=== PATIENT | female | born 2000 | race Caucasian/White ===

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

== ENCOUNTER 2019-04-05 12:47 | Emergency (ER) | payer BC ==
--- OUTSIDE RECORDS SUMMARY | 2019-04-05 13:25 | XMS REPORT | Continuity of Care Document ---
:1999 External Reference #:[id number] Author Name Leah Navarro Address [address] [place] [address] Care Team Providers Name Role Phone Henrietta Rose DO Primary Care Physician Unavailable Payers Date Identification Numbers Payment Provider Subscriber Effective: 2010 Policy Number: [id number] BC/BS Ppo/Epo greg dixon Group Name: [employer] [address] [address] PayID: [id number] [place] [address] Problems Active Problems Provider Date Kidney stone Henrietta Rose D.O. 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 Onset: 2010 Inactive: 10/16/2018 Generalized anxiety disorder Henrietta Rose D.O. Onset: 10/08/2015 Inactive: 10/16/2018 Moderate recurrent major depression Henrietta Rose D.O. Onset: 10/08/2015 Inactive: 10/16/2018 Resolved Problems Eating disorder Henrietta Rose D.O. Onset: 10/08/2015 Resolved: 06/05/2018 Family History Date Family Member(s) Observation Comments General Cousin with ADHD Father Unknown Mother Seasonal Allergies Mother Celiac Disease Mother Scleroderma First Sister No Current Problems First Sister Rochelle Maternal Grandfather Hypertension Maternal Grandmother Depression Social History Type Date Description Comments Sex Unknown Lives With Mother Lives With Stepfather Lives With Younger Sister Rochelle Tobacco Use Start: Unknown Patient has never smoked Smoking Status Reviewed: 04/03/19 Patient has never smoked Allergies, Adverse Reactions, Alerts Description No Known Drug Allergies Medications Active Medications SIG Qnty Indications Ordering Date Provider Ketoconazole apply to affected 60gm B35.4 [facility] 01/28/2019 2% Cream area twice daily Sharkness, C.P.N.P Hydrocortisone Valerate apply to affected 45gm B35.4 [facility] 01/28/2019 area twice daily Sharkness, 0.2% Cream for 5 - 7 days C.P.N.P Culturelle Digestive Use as directed Unknown Health Probiotic Capsules Tretinoin Microsphere apply to face at Unknown 0.04% bedtime Gel Sulfacleanse 06/29 Use as directed 473ml Henrietta Rose, 8-4% D.O. Suspension History Medications Tamsulosin HCL 1 tablet daily 21caps N20.2 Henrietta Rose, 07/01/2018 - 0.4mg D.O. 07/28/2018 Capsules Imiquimod apply at bedtime 24units B07.9 Henrietta Rose, 06/21/2017 - 5% Cream three times a D.O. 08/16/2017 week x 4-8 weeks Azithromycin 2 tablets by 6tabs J01.00 [facility] 02/12/2017 - 250mg mouth today Sharkness, 02/17/2017 Tablets followed by 1 C.P.N.P tablet by mouth daily for 4 days Cefdinir 2 by mouth once 20caps J01.00 Henrietta Rose, 02/28/2016 - 300mg Capsules daily x 10d D.O. 03/09/2016 Imiquimod apply at bedtime 24units B07.9 Henrietta Rose, 02/28/2016 - 5% Cream three times a D.O. 04/24/2016 week x 4-8 weeks Claritin-D 12 Hour 1 tab po twice 20tabs J01.20 [facility] 01/10/2016 - daily Donny, 01/20/2016 5-120mg Tablets ER M.D. 12HR Zithromax z raya 6tabs J01.20 [facility] 01/10/2016 - 250mg Tablets Donny, 01/15/2016 M.DTina Amoxicillin 1 tablet twice 28tabs J01.00 Henrietta Rose, 12/22/2015 - 875mg daily for 14 D.O. 01/05/2016 Tablets days Sertraline HCL 1 1/2 by mouth 45tabs F41.1 Henrietta Rose, 10/08/2015 - 50mg every day D.O. 08/04/2017 Tablets F33.1 Sertraline HCL 1 1/2 tablets 45tabs F41.1 Henrietta Rose, 04/08/2015 - 25mg daily D.O. 10/08/2015 Tablets F33.1 Citalopram 1 tablet daily 30tabs 296.32 Henrietta oRse, 02/25/2015 - Hydrobromide D.O. 04/06/2015 10mg Tablets Imiquimod apply at bedtime 24units 078.10 Henrietta Rose, 02/25/2015 - 5% Cream three times a D.O. 06/01/2015 week x 4-8 weeks No Active Medications Unknown 05/16/2014 - 02/25/2015 Amoxicillin/Clavulana 1 tablet by 20tabs 682.9 [facility] 05/06/2014 - te Potassium mouth twice [facility], 05/16/2014 875-125mg daily for 10 C.P.N.P Tablets days No Active Medications Unknown 01/06/2014 - 05/06/2014 Ketoconazole apply to 30gm 110.5 [facility] 11/24/2013 - 2% Cream affected area [facility], 12/08/2013 twice daily C.P.N.P Amoxicillin 1 tablet twice 20tabs 382.9 [facility] 11/24/2013 - 875mg daily for 10 [facility], 12/04/2013 Tablets days C.P.N.P Focalin XR 1 by mouth each 30caps 314.01 Henrietta Rose, 07/01/2013 - 10mg Caps ER morning D.O. 01/06/2014 24HR Focalin XR 1 by mouth daily 30caps 314.01 Henrietta Rose, 07/15/2012 - 15mg Caps ER D.O. 07/01/2013 24HR Melatonin 1 po qhs 30caps Henrietta Rose, 05/14/2012 - 3mg Capsules D.O. 04/08/2013 Focalin XR 1 po qam 30caps 314.01 Henrietta Rose, 05/14/2012 - 25mg Caps ER D.O. 07/15/2012 24HR Ciprodex 4 drops each ear 7.500ml 380.22 Ramón 05/30/2011 - 0.3-0.1% twice daily for Sharkness, 06/04/2011 Suspension 7 days C.P.N.P Focalin XR 1 po qd 30caps 314.01 Henrietta Rose, 04/04/2011 - 20mg Caps ER D.O. 05/14/2012 24HR Polytrim 1 gtt to both 1bottle Vilma Burtshaylee, 03/24/2010 - eyes qid for 5-7 PNP-BC 03/31/2010 32520-5.1Unit/ML-% days Solution Cefdinir 1 1/2 tsp po qd 100ml 461.9 Henrietta Rose, 03/02/2010 - 250mg/5ML x 10d D.O. 03/12/2010 Suspension Rec Fluoxetine HCL 1 tab daily 30tabs 300.00 Henrietta Rose, 01/14/2010 - 10mg D.O. 05/09/2010 Tablets Focalin XR 1 po qam 30caps 314.01 Randy Mello, 10/20/2009 - 15mg Caps ER M.D. 04/04/2011 24HR Focalin XR 1 po qam 25caps Henrietta Rose, 09/22/2009 - 5mg Caps ER D.O. 10/20/2009 24HR Focalin XR 1 po qd 30caps 314.01 Molly Stephen, 05/20/2008 - 10mg Caps ER C.P.N.P. 10/20/2009 24HR Focalin XR 1 po qam 30caps 314.01 Henrietta Rose, 04/29/2008 - 5mg Caps ER D.O. 05/20/2008 24HR Ceftin 1 Tab PO bid For QS 382.00 [facility] 04/13/2008 - 250mg Tablets 10 Days pc Donny, 04/23/2008 M.D. Adderall XR 1 po qd 30caps 314.01 [facility] 01/15/2008 - 10mg Donny, 04/29/2008 Capsules M.D. Amoxil 2 PO bid X 10D 40units 034.0 Henrietta Rose, 01/15/2008 - 400mg Chewtabs D.O. 01/25/2008 Adderall 314.01 Unknown - 7.5mg Tablets 01/15/2008 Trazodone HCL Take One Tablet 30tabs F41.1 Henrietta Rose, - 50mg By Mouth AT D.O. 08/20/2017 Tablets Bedtime F33.1 Immunizations CPT Code Status Date Vaccine Lot # [id number] Given 05/01/2018 Hepatitis A Vaccine Pediatric/Adolescent 2 Dose [id number] Schedule 81458 Given 06/21/2016 Meningococcal A,C,Y,W135 (Menactra) Preservative [id number] Free 23084 Given 07/16/2013 Flu Mist Quadrivalent [id number] 05169 Given 09/09/2012 Meningococcal A,C,Y,W135 (Menactra) Preservative [id number] Free 46324 Given 09/09/2012 Flu Vacc Nasal Mist Trivalent (FluMist) [id number] 48833 Given 10/11/2011 Flu Vacc Nasal Mist Trivalent (FluMist) [id number] 09912 Given 10/06/2010 TdaP Immunization Age 7+ [id number] 19658 Given 10/06/2010 Flu Vacc Nasal Mist Trivalent (FluMist) [id number] 72410 Given 09/22/2009 Varicella (Chicken Pox) Immunization [id number] 20800 Given 09/22/2009 Flu H1N1/Pandemic Nasal Mist [id number] 17854 Given 09/22/2009 Vaccine Admin H1N1 Only Im or Nasal 02921 Given 07/28/2009 Flu Vacc Nasal Mist Trivalent (FluMist) [id number] 15176 Given 12/06/2008 Hib Vaccine 17588 Given 09/22/2008 Flu Vacc Nasal Mist Trivalent (FluMist) [id number] 34336 Given 05/10/2004 DTaP Immunization under age 7 05627 Given 05/09/2004 Poliomyelitis Immunization 65243 Given 05/09/2004 MMR Virus Immunization 40731 Given 10/16/2002 Hib Vaccine 88852 Given 12/06/2000 DTaP Immunization under age 7 28775 Given 11/26/2000 Hepatitis B Imm Age 0 to 19yr 35301 Given 09/06/2000 Varicella (Chicken Pox) Immunization 73113 Given 09/06/2000 Poliomyelitis Immunization 55275 Given 09/06/2000 MMR Virus Immunization 02694 Given 02/15/2000 DTaP Immunization under age 7 32566 Given 1999 Hepatitis B Imm Age 0 to 19yr 45758 Given 1999 Poliomyelitis Immunization 83265 Given 1999 DTaP Immunization under age 7 18665 Given 1999 Hib Vaccine 48919 Given 1999 Hepatitis B Imm Age 0 to 19yr 45917 Given 1999 Poliomyelitis Immunization 15628 Given 1999 DTaP Immunization under age 7 19061 Given 1999 Hib Vaccine 51701 Refused 06/21/2016 Hepatitis A Vaccine Pediatric/Adolescent 2 Dose Schedule 41707 Refused 06/21/2016 HPV 9 Gardasil 9 Vital Signs Date Vital Result Comment 04/03/2019 2:07pm Weight 135.00 lb Weight 61.236 kg Weight Percentile 62nd Body Temperature 98.1 F 01/28/2019 8:56am Height 62.75 inches 5'2.75" Height Percentile 27 % Weight 134.00 lb Weight 60.782 kg Weight Percentile 61st Body Temperature 97.4 F BMI (Body Mass Index) 23.9 kg/m2 Body Mass Index Percentile 72 % 10/16/2018 10:58am Height 62.75 inches 5'2.75" Height Percentile 27 % Weight 127.25 lb Weight 57.721 kg Weight Percentile 51st Heart Rate 53 /min BP Systolic 110 mmHg BP Diastolic 70 mmHg BMI (Body Mass Index) 22.7 kg/m2 Body Mass Index Percentile 63 % 07/01/2018 3:58pm Height 63 inches 5'3" Height Percentile 31 % Weight 119.12 lb Weight 54.035 kg Weight Percentile 36th Heart Rate 71 /min BP Systolic 107 mmHg BP Diastolic 62 mmHg Blood Pressure Percentile 41 % BMI (Body Mass Index) 21.1 kg/m2 Body Mass Index Percentile 45 % 06/28/2018 3:56pm Weight 117.00 lb Weight 53.071 kg Weight Percentile 31st Body Temperature 98.0 F 06/18/2018 8:41am Weight 117.38 lb Weight 53.241 kg Weight Percentile 32nd Body Temperature 98.3 F 06/05/2018 11:00am Weight 118.50 lb Weight 53.752 kg Weight Percentile 35th Body Temperature 98.3 F 05/01/2018 2:38pm Height 63.5 inches 5'3.50" Height Percentile 38 % Weight 122.00 lb Weight 55.339 kg Weight Percentile 42nd Heart Rate 56 /min BP Systolic 99 mmHg BP Diastolic 61 mmHg Blood Pressure Percentile 14 % BMI (Body Mass Index) 21.3 kg/m2 Body Mass Index Percentile 47 % Right ear audiology results 20 db Left ear audiology results 20 db Left Visual Acuity Distance 20/20 Right Visual Acuity Distance 20/20 03/20/2018 9:40am Height 63 inches 5'3" Height Percentile 31 % Weight 122.00 lb Weight 55.339 kg Weight Percentile 43rd Heart Rate 79 /min BP Systolic 124 mmHg BP Diastolic 64 mmHg Blood Pressure Percentile 91 % BMI (Body Mass Index) 21.6 kg/m2 Body Mass Index Percentile 52 % 06/21/2017 10:26am Height 63 inches 5'3" Height Percentile 32 % Weight 118.50 lb Weight 53.752 kg Weight Percentile 39th Heart Rate 65 /min BP Systolic 106 mmHg BP Diastolic 54 mmHg Blood Pressure Percentile 33 % BMI (Body Mass Index) 21.0 kg/m2 Body Mass Index Percentile 47 % Right ear audiology results 20 db Left ear audiology results 20 db Left Visual Acuity Distance 20/20 Right Visual Acuity Distance 20/20 02/12/2017 10:01am Weight 124.31 lb Weight 56.388 kg Weight Percentile 53rd Body Temperature 98.4 F 06/21/2016 1:58pm Height 63.25 inches 5'3.25" Height Percentile 37 % Weight 116.00 lb Weight 52.618 kg Weight Percentile 39th Heart Rate 94 /min BP Systolic 105 mmHg BP Diastolic 63 mmHg Blood Pressure Percentile 28 % BMI (Body Mass Index) 20.4 kg/m2 Body Mass Index Percentile 44 % Right ear audiology results 20 db Left ear audiology results 20 db Left Visual Acuity Distance 20/20 Right Visual Acuity Distance 20/20 03/29/2016 8:51am Height 63 inches 5'3" Height Percentile 33 % Weight 120.00 lb Weight 54.432 kg Weight Percentile 48th Heart Rate 67 /min BP Systolic 118 mmHg BP Diastolic 63 mmHg Blood Pressure Percentile 75 % BMI (Body Mass Index) 21.3 kg/m2 Body Mass Index Percentile 56 % 02/28/2016 10:18am Weight 122.00 lb Weight 55.339 kg Weight Percentile 53rd Body Temperature 97.7 F Heart Rate 97 /min BP Systolic 116 mmHg BP Diastolic 71 mmHg Blood Pressure Percentile 0 % O2 % BldC Oximetry 98 % 01/10/2016 5:13pm Weight 124.00 lb Weight 56.246 kg Weight Percentile 57th Body Temperature 98.0 F Heart Rate 73 /min O2 % BldC Oximetry 100 % 12/22/2015 11:48am Weight 120.00 lb Weight 54.432 kg Weight Percentile 50th Body Temperature 98.2 F 10/08/2015 3:52pm Height 62.75 inches 5'2.75" Height Percentile 31 % Weight 125.00 lb Weight 56.700 kg Weight Percentile 60th Heart Rate 51 /min BP Systolic 108 mmHg BP Diastolic 67 mmHg Blood Pressure Percentile 40 % BMI (Body Mass Index) 22.3 kg/m2 Body Mass Index Percentile 70 % 06/25/2015 3:25pm Height 62.75 inches 5'2.75" Height Percentile 31 % Weight 119.00 lb Weight 53.978 kg Weight Percentile 51st Heart Rate 69 /min BP Systolic 112 mmHg BP Diastolic 66 mmHg Blood Pressure Percentile 56 % BMI (Body Mass Index) 21.2 kg/m2 Body Mass Index Percentile 60 % 05/20/2015 9:10am Height 63.25 inches 5'3.25" Height Percentile 39 % Weight 118.12 lb Weight 53.581 kg Weight Percentile 50th Heart Rate 79 /min BP Systolic 124 mmHg BP Diastolic 67 mmHg Blood Pressure Percentile 89 % BMI (Body Mass Index) 20.8 kg/m2 Body Mass Index Percentile 55 % 04/06/2015 8:44am Height 62.5 inches 5'2.50" Height Percentile 29 % Weight 122.38 lb Weight 55.509 kg Weight Percentile 59th Heart Rate 76 /min BP Systolic 106 mmHg BP Diastolic 59 mmHg Blood Pressure Percentile 34 % BMI (Body Mass Index) 22.0 kg/m2 Body Mass Index Percentile 69 % 02/25/2015 8:52am Height 63 inches 5'3" Height Percentile 36 % Weight 122.00 lb Weight 55.339 kg Weight Percentile 59th Heart Rate 66 /min BP Systolic 120 mmHg BP Diastolic 59 mmHg Blood Pressure Percentile 81 % BMI (Body Mass Index) 21.6 kg/m2 Body Mass Index Percentile 66 % 12/23/2014 1:28pm Weight 118.00 lb Weight 53.525 kg Weight Percentile 53rd Body Temperature 98.3 F 10/19/2014 4:22pm Weight 119.00 lb Weight 53.978 kg Weight Percentile 56th Body Temperature 98.0 F Heart Rate 94 /min O2 % BldC Oximetry 100 % 05/21/2014 9:12am Weight 119.00 lb Weight 53.978 kg Weight Percentile 59th Body Temperature 98.3 F 05/06/2014 4:05pm Weight 122.50 lb Weight 55.566 kg Weight Percentile 65th Body Temperature 98.9 F 01/06/2014 8:40am Height 63 inches 5'3" Height Percentile 42 % Weight 120.00 lb Weight 54.432 kg Weight Percentile 64th Heart Rate 67 /min BP Systolic 113 mmHg BP Diastolic 60 mmHg Blood Pressure Percentile 62 % BMI (Body Mass Index) 21.3 kg/m2 Body Mass Index Percentile 69 % 11/24/2013 4:09pm Weight 122.00 lb Weight 55.339 kg Weight Percentile 68th Body Temperature 97.6 F Heart Rate 78 /min BP Systolic 112 mmHg BP Diastolic 65 mmHg Blood Pressure Percentile 0 % O2 % BldC Oximetry 100 % 11/07/2013 8:25am Weight 123.00 lb Weight 55.793 kg Weight Percentile 70th Body Temperature 97.6 F 08/06/2013 11:30am Weight 115.00 lb Weight 52.164 kg Weight Percentile 60th Body Temperature 97.9 F Heart Rate 72 /min 07/16/2013 11:42am Weight 117.00 lb Weight 53.071 kg Weight Percentile 64th Body Temperature 97.8 F 07/01/2013 10:27am Height 62.75 inches 5'2.75" Height Percentile 44 % Weight 117.00 lb Weight 53.071 kg Weight Percentile 65th Heart Rate 76 /min BP Systolic 102 mmHg BP Diastolic 64 mmHg Blood Pressure Percentile 25 % BMI (Body Mass Index) 20.9 kg/m2 Body Mass Index Percentile 68 % 04/08/2013 8:35am Height 62.75 inches 5'2.75" Height Percentile 48 % Weight 113.00 lb Weight 51.257 kg Weight Percentile 61st Heart Rate 88 /min BP Systolic 123 mmHg BP Diastolic 65 mmHg Blood Pressure Percentile 0 % BMI (Body Mass Index) 20.2 kg/m2 Body Mass Index Percentile 62 % 09/09/2012 9:43am Height 62 inches 5'2" Height Percentile 49 % Weight 103.00 lb Weight 46.721 kg Weight Percentile 51st Heart Rate 68 /min BP Systolic 110 mmHg BP Diastolic 64 mmHg Blood Pressure Percentile 58 % BMI (Body Mass Index) 18.8 kg/m2 Body Mass Index Percentile 50 % 05/14/2012 7:58am Height 62.25 inches 5'2.25" Height Percentile 60 % Weight 101.00 lb Weight 45.814 kg Weight Percentile 53rd Heart Rate 60 /min BP Systolic 106 mmHg BP Diastolic 64 mmHg Blood Pressure Percentile 42 % BMI (Body Mass Index) 18.3 kg/m2 Body Mass Index Percentile 46 % 10/30/2011 10:02am Height 60.75 inches 5'0.75" Height Percentile 57 % Weight 91.00 lb Weight 41.278 kg Weight Percentile 42nd Heart Rate 88 /min BP Systolic 112 mmHg BP Diastolic 52 mmHg Blood Pressure Percentile 69 % BMI (Body Mass Index) 17.3 kg/m2 Body Mass Index Percentile 35 % 10/11/2011 8:16am Height 60.5 inches 5'0.50" Height Percentile 55 % Weight 90.00 lb Weight 40.824 kg Weight Percentile 41st BP Systolic 110 mmHg BP Diastolic 58 mmHg Blood Pressure Percentile 62 % BMI (Body Mass Index) 17.3 kg/m2 Body Mass Index Percentile 35 % 05/30/2011 11:34am Weight 83.00 lb Weight 37.649 kg Weight Percentile 33rd Body Temperature 98.2 F Blood Pressure Percentile 0 % 04/04/2011 8:50am Height 59.5 inches 4'11.50" Height Percentile 61 % Weight 84.00 lb Weight 38.102 kg Weight Percentile 39th BP Systolic 110 mmHg BP Diastolic 60 mmHg Blood Pressure Percentile 65 % BMI (Body Mass Index) 16.7 kg/m2 Body Mass Index Percentile 30 % 12/26/2010 9:47am Weight 75.00 lb Weight 34.020 kg Weight Percentile 23rd Body Temperature 98.6 F Blood Pressure Percentile 0 % 10/06/2010 2:10pm Weight 75.00 lb Weight 34.020 kg Weight Percentile 28th Body Temperature 98.8 F Blood Pressure Percentile 0 % 08/26/2010 2:54pm Height 57.25 inches 4'9.25" Height Percentile 54 % Weight 72.00 lb Weight 32.659 kg Weight Percentile 23rd Heart Rate 68 /min BP Systolic 110 mmHg BP Diastolic 66 mmHg Blood Pressure Percentile 70 % BMI (Body Mass Index) 15.4 kg/m2 Body Mass Index Percentile 16 % 03/17/2010 4:24pm Height Percentile 97 % Weight 64.50 lb Weight 29.257 kg Weight Percentile 14th Body Temperature 98.6 F Blood Pressure Percentile 0 % 03/02/2010 8:07am Height 56 inches 4'8" Height Percentile 54 % Weight 65.00 lb Weight 29.484 kg Weight Percentile 16th Heart Rate 70 /min BP Systolic 90 mmHg BP Diastolic 59 mmHg Blood Pressure Percentile 9 % BMI (Body Mass Index) 14.6 kg/m2 Body Mass Index Percentile 8 % 01/13/2010 11:42am Height 55.75 inches 4'7.75" Height Percentile 55 % Weight 62.00 lb Weight 28.123 kg Weight Percentile 11th Body Temperature 97.9 F Blood Pressure Percentile 0 % BMI (Body Mass Index) 14.0 kg/m2 Body Mass Index Percentile 3 % 09/22/2009 3:04pm Height 54.5 inches 4'6.50" Height Percentile 47 % Weight 66.00 lb Weight 29.938 kg Weight Percentile 28th Heart Rate 75 /min BP Systolic 94 mmHg BP Diastolic 63 mmHg Blood Pressure Percentile 21 % BMI (Body Mass Index) 15.6 kg/m2 Body Mass Index Percentile 27 % 12/25/2008 8:09am Weight 58.00 lb Weight 26.309 kg Weight Percentile 21st 09/22/2008 3:05pm Height 52 inches 4'4" Height Percentile 39 % Weight 57.00 lb Weight 25.855 kg Weight Percentile 23rd Heart Rate 80 /min BP Systolic 100 mmHg BP Diastolic 56 mmHg BMI (Body Mass Index) 14.8 kg/m2 Body Mass Index Percentile 22 % 04/29/2008 8:12am Weight 52.00 lb Weight 23.587 kg Weight Percentile 16th BP Systolic 122 mmHg BP Diastolic 60 mmHg 04/13/2008 11:59am Weight 55.00 lb Weight 24.948 kg Weight Percentile 26th Body Temperature 98.1 F 04/13/2008 11:59am Weight 55.00 lb Weight 24.948 kg Weight Percentile 26th 02/14/2008 8:00am Weight 61.00 lb Weight 27.670 kg Weight Percentile 52nd BP Systolic 92 mmHg BP Diastolic 50 mmHg 01/15/2008 8:26am Weight 53.00 lb Weight 24.041 kg Weight Percentile 24th BP Systolic 98 mmHg BP Diastolic 64 mmHg Results Test Date Facility Test Result H/L Range Note Laboratory test 04/03/2019 In House Lab .Strep A, Neg finding (195)- - Rapid CBC Auto Diff 10/16/2018 [facility] White Blood 5.6 10^3/uL N 3.5-10.8 [address] [place] [address] [phone] Red Blood Count 4.34 10^6/uL N 4.00-5.40 Hemoglobin 13.3 g/dL N 12.0-16.0 Hematocrit 39 % N 35-47 Mean Corpuscular Volume 90 fL N 80-97 Mean Corpuscular Hemoglobin 31 pg N 27-31 Mean Corpuscular HGB Conc 34 g/dL N 31-36 Red Cell Distribution Width 14 % N 10.5-15 Platelet Count 257 10^3/uL N 150-450 Mean Platelet Volume 8.7 fL N 7.4-10.4 Abs Neutrophils 3.2 10^3/uL N 1.5-7.7 Abs Lymphocytes 1.9 10^3/uL N 1.0-4.8 Abs Monocytes 0.4 10^3/uL N 0-0.8 Abs Eosinophils 0.1 10^3/uL N 0-0.6 Abs Basophils 0 10^3/uL N 0-0.2 Abs Nucleated RBC 0 10^3/uL Granulocyte % 58.4 % N 38-83 Lymphocyte % 33.3 % N 25-47 Monocyte % 7.0 % N 0-7 Eosinophil % 0.9 % N 0-6 Basophil % 0.4 % N 0-2 Nucleated Red Blood Cells % 0.1 Comp Metabolic Panel 10/16/2018 [facility] Sodium 138 mmol/L N 135-145 [address] [place] [address] [phone] Potassium 4.2 mmol/L N 3.5-5.0 Chloride 103 mmol/L N 101-111 Co2 Carbon Dioxide 28 mmol/L N 22-32 Anion Gap 7 mmol/L N 2-11 Glucose 73 mg/dL N 70-100 Blood Urea Nitrogen 13 mg/dL N 6-24 Creatinine 0.71 mg/dL N 0.51-0.95 BUN/Creatinine Ratio 18.3 N 8-20 Calcium 10.1 mg/dL N 8.6-10.3 Total Protein 6.9 g/dL N 6.4-8.9 Albumin 4.8 g/dL N 3.2-5.2 Globulin 2.1 g/dL N 2-4 Albumin/Globulin Ratio 2.3 N 1-3 Total Bilirubin 0.60 mg/dL N 0.2-1.0 Alkaline Phosphatase 82 U/L N 34-104 Alt 17 U/L N 7-52 Ast 22 U/L N 13-39 Egfr Non- 106.0 >60 Egfr 128.3 >60 1 Pthi 10/16/2018 [facility] Calcium (PTH Intact) 10.1 mg/dL N 8.6-10.3 10 [place] [address] [phone] PTH Intact 2.4 pmol/L N 1.3-9.3 Laboratory test 10/16/2018 [facility] Phosphorus 3.5 mg/dL N 2.5-5.0 finding 10 [place] [address] [phone] Food Allergy 10/16/2018 [facility] Egg White <0.35 kU/L 2 Panel 10 [facility] [place] [address] [phone] [place] Allergen IgE <0.35 kU/L 3 Egg Yolk Allergen IgE <0.35 kU/L 4 Cow's Milk Allergen IgE <0.35 kU/L 5 Peanut Allergen IgE <0.10 kU/L 6 Soybean Allergen IgE <0.35 kU/L 7 Wheat Allergen IgE <0.35 kU/L 8 Laboratory test 10/16/2018 [facility] Black/White Pepper < 0.35 kU/L 9 finding 10 [facility] [place] [address] [phone] Rast Cat Epithelium Ige <0.35 kU/L 10 Rast Chicken Feathers <0.35 kU/L 11 Duck Feathers, IgE <0.35 kU/L 12 Rast Chicken Meat <0.35 kU/L 13 Rast Medina <0.35 kU/L 14 Rast Rice <0.35 kU/L 15 Rast Tomatoe <0.35 kU/L 16 Rast Yeast ([place]) <0.35 kU/L 17 Goose Feathers Allergen IgE Ab <0.35 kU/L 18 [place] Feathers, IgE <0.35 kU/L 19 Rast Chocolate <0.35 kU/L 20 [place] [facility] 10/16/2018 [facility] Bermuda Grass <0.35 kU/L 21 Allergy Panel 10 [employer] Allergen IgE [place], [place] [id number] [phone] Silver Birch IgE <0.35 kU/L 22 [place] Maple IgE <0.35 kU/L 23 [place] Allergen IgE <0.35 kU/L 24 Cocklebur Allergen IgE <0.35 kU/L 25 [place] Allergen IgE <0.35 kU/L 26 Dandelion Allergen IgE <0.35 kU/L 27 [place]m Tree Allergen IgE <0.35 kU/L 28 Yoruba Plantain Allergen IgE <0.35 kU/L 29 [place] Allergen IgE <0.35 kU/L 30 [place] Tree Allerg IgE <0.35 kU/L 31 [place] Blue (April) Grass IgE <0.35 kU/L 32 [place] Quarter Allergen IgE <0.35 kU/L 33 [place] Tree Allergen IgE <0.35 kU/L 34 [place] Allergen IgE <0.35 kU/L 35 Rough Pigweed Allergen IgE <0.35 kU/L 36 [place] Tree Allergen IgE <0.35 kU/L 37 Common Ragweed (Short) Allerge <0.35 kU/L 38 Giant Ragweed Allergen IgE <0.35 kU/L 39 [place] Tree Allergen IgE <0.35 kU/L [address] [address] Grass Allergen IgE <0.35 kU/L 41 Sheep Blanding Allergen IgE <0.35 kU/L 42 [place] Grass Allergen IgE <0.35 kU/L 43 White Adriano Allergen IgE <0.35 kU/L 44 [place] Tree Allergen IgE <0.35 kU/L 45 Laboratory test 10/16/2018 [facility] Rast Coconut <0.35 kU/L 46 finding [address] [place] [address] [phone] Cockroach Allergen IgE <0.35 kU/L 47 Rast Cow Dander Ige <0.35 kU/L 48 Rast Dog Dander Ige <0.35 kU/L 49 Rast Garlic <0.35 kU/L 50 Rast Guinea Pig <0.35 kU/L 51 Horse Dander Allergen IgE <0.35 kU/L 52 Malt Allergen IgE Antibody <0.35 kU/L 53 Rast Onion <0.35 kU/L 54 [place] [facility] 10/16/2018 [facility] Alternaria tenuis <0.35 kU/L 55 Allergy Panel 10 [facility] [employer] [place] [address] [phone] A pullulans IgE Allergen <0.35 kU/L 56 Aspergillus Fumigatus IgE <0.35 kU/L 57 Botrytis Allergen IgE <0.35 kU/L 58 Kacie albicans Allergen IgE <0.35 kU/L 59 Cladosporium herbarum IgE <0.35 kU/L 60 Dermatophagoides farinae IgE <0.35 kU/L 61 Dermatophagoides pteronyssinus <0.35 kU/L 62 Epicoccum Allergen IgE <0.35 kU/L 63 Fusarium moniliforme Allergen <0.35 kU/L 64 Helminthosporium halodes IgE <0.35 kU/L 65 House Dust/Nuñez Allergen IgE <0.35 kU/L 66 House Dust/[place] Varina Narcisa IgE <0.35 kU/L 67 Mucor racemosus Allergen IgE <0.35 kU/L 68 Penicillium notatum Allerg IgE <0.35 kU/L 69 Rhizopus nigricans Allerg IgE <0.35 kU/L 70 Stemphyllium IgE Allergen <0.35 kU/L 71 Trichophyton rubrum Allergen <0.35 kU/L 72 Ustilago nuda IgE Allergen <0.35 kU/L 73 Laboratory test 06/28/2018 In House Lab .Urine Culture In <100k neg finding (607)- - House Laboratory test 06/21/2017 In House Lab .Hemoglobin in 13.4 finding (607)- - house Laboratory test 06/21/2016 In House Lab .Hemoglobin in 12.7 finding (607)- - house Laboratory test 02/25/2015 [facility] Magnesium 1.9 mg/dL N 1.9-2.[address] [place] [address] [phone] Zinc Level 0.68 g/mL N 0.66-1.10 74 Free T4 0.99 ng/mL N 0.61-1.12 Total T3 1.03 ng/mL N 0.87-1.78 Vitamin D, 25 02/25/2015 [facility] 25-Hydroxy Vitamin <4.0 ng/ mL N Hydroxy [address] [place] [address] [phone] 25-Hydroxy Vitamin D3 33 ng/mL N 25-Hydroxy Vitamin D Total 33 ng/mL N 75 Laboratory test 02/25/2015 [facility] TSH (Thyroid 0.49 IU/mL N 0.34-5.[address] [place] [address] Horm) [phone] Comp Metabolic 02/25/2015 [facility] Sodium 138 mmol/L N 133- [address] [place] [address] [phone] Potassium 4.1 mmol/L N 3.5-5.0 Chloride 107 mmol/L N 101-111 Co2 Carbon Dioxide 26 mmol/L N 22-32 Anion Gap 5 mmol/L N 2-11 Glucose 61 mg/dL Low 70-100 Blood Urea Nitrogen 18 mg/dL N 6-24 Creatinine 0.65 mg/dL N 0.51-0.95 BUN/Creatinine Ratio 27.7 High 8-20 Calcium 9.5 mg/dL N 8.6-10.3 Total Protein 6.5 g/dL N 6.4-8.9 Albumin 4.5 g/dL N 3.2-5.2 Globulin 2.0 g/dL N 2-4 Albumin/Globulin Ratio 2.3 N 1-3 Total Bilirubin 0.50 mg/dL N 0.2-1.0 Alkaline Phosphatase 75 U/L N 34-104 Alt 16 U/L N 7-52 Ast 22 U/L N 13-39 CBC Auto Diff 02/25/2015 [facility] White Blood 7.0 10^3/uL N 4.8-10.[address] [place] [address] [phone] Red Blood Count 4.14 10^6/uL N 4.0-5.4 Hemoglobin 12.6 g/dL N 12.0-16.0 Hematocrit 38 % N 35-47 Mean Corpuscular Volume 91 fL N 80-97 Mean Corpuscular Hemoglobin 30 pg N 27-31 Mean Corpuscular HGB Conc 33 g/dL N 31-36 Red Cell Distribution Width 13 % N 10.5-15 Platelet Count 231 10^3/uL N 150-450 Mean Platelet Volume 9 um3 N 7.4-10.4 Abs Neutrophils 4.6 10^3/uL N 1.5-7.7 Abs Lymphocytes 1.7 10^3/uL N 1.0-4.8 Abs Monocytes 0.5 10^3/uL N 0-0.8 Abs Eosinophils 0.1 10^3/uL N 0-0.6 Abs Basophils 0 10^3/uL N 0-0.2 Abs Nucleated RBC 0 10^3/uL N Granulocyte % 66.4 % N 38-83 Lymphocyte % 24.7 % Low 25-47 Monocyte % 7.3 % N 1-9 Eosinophil % 1.0 % N 0-6 Basophil % 0.6 % N 0-2 Nucleated Red Blood Cells % 0 N Laboratory test 12/23/2014 In House Lab .Flu Test in Neg finding (607)- - house Laboratory test 11/24/2013 [facility] C Reactive 0.8 mg/dL High Less than finding [address] Protein 0.5 [place] [address] [phone] Lyme Disease Serology Negative Negative 76 Erythrocyte Sed Rate 9 mm/Hr 0-14 CBC With 11/24/2013 [facility] White Blood 10.3 10^3/uL 4.8- 10.8 Manual Diff [address] [place] [address] [phone] Red Blood Count 4.31 10^6/uL 4.0-5.4 Hemoglobin [...] Morphology Normal Normal Laboratory test finding 07/01/2013 [facility] House [facility] Hemoglobin 11.4 (607)- - Laboratory test finding 09/09/2012 [facility] House [facility] Hemoglobin 13.7 (607)- - Laboratory test finding 05/30/2011 In House Lab .Throat Culture Quick Neg (607)- - Strep .Throat Culture Overnight NEGATIVE Laboratory test finding 10/06/2010 In House Lab Throat Culture (Overnight) neg (607)- - Throat Culture Quick Strep neg CBC With Manual 01/13/2010 [facility] White Blood 6.7 CUMM 5.0-17.0 Diff [address] [place] [address] [phone] Red Cell Count 4.71 CUMM 3.9-5.3 Hemoglobin [...] 4.8 RBC Morphology NORMAL Thyroid Panel 01/13/2010 [facility] Free Thyroxine 0.98 NG/ML 0.61-1.24 77 [address] [place] [address] [phone] Thyroxine 7.8 g/dL 5-12 TSH 2.62 MIU/ML 0.34-5.60 Laboratory test 01/13/2010 [facility] Vitamin D, 1,25 54 pg/ mL 24-86 78 finding 10 [facility] [place] [address] [phone] Comp Metabolic 01/13/2010 [facility] Sodium 138 mmol/L 135- 145 Panel 10 [place] [address] [phone] Potassium 4.4 mmol/L 3.6-5.2 Chloride 102 mmol/L 101-111 Co2 (Carbon Dioxide) 27.0 mmol/L 22-32 Anion Gap 9.0 mmol/L 2-11 79 Glucose 122 mg/dL High 70-100 80 BUN 9 mg/dL 6-24 Creatinine 0.60 mg/dL 0.50-1.40 One Over Creatinine 1.60 BUN/Creatinine Ratio 15.0 8-20 Calcium 10.4 mg/dL High 8.1-9.9 81 Total Protein 7.1 GM/DL 6.2-8.1 Albumin 4.8 GM/DL 3.6-5.4 Globulin 2.3 GM/DL 2-4 Albumin/Globulin Ratio 2.1 1-3 Bilirubin Total 0.5 mg/dL 0.4-1.5 82 Alkaline Phosphatase 178 U/L 130-390 Alt (SGPT) 23 U/L 14-54 Ast (Sgot) 33 U/L 12-42 Laboratory test 01/13/2010 [facility] Lipase 32 U/L 22-51 finding 10 [place], [place] [id number] [phone] Laboratory test 09/22/2008 [facility] Ige <2.0 kU/L () 83 finding [address] [place], [place] [id number] [phone] [facility] [place] Panel (SEE NOTE) 84 Hemoglobin/Hematacrit 09/22/2008 [facility] Hemoglobin 12.4 11.5-14.[address] g/[place] [address] [phone] Hematocrit 36 % 34-40 Laboratory test finding 01/15/2008 In House Lab Throat Culture Quick positive (220)- - Strep 1 Because ethnic data is not always readily available, this report includes an eGFR for both -Americans and non- Americans. The National Kidney Disease Education Program (NKDEP) does not endorse the use of the MDRD equation for patients that are not between the ages of 18 and 70, are , have extremes of body size, muscle mass, or nutritional status, or are non- or non-. According to the National Kidney Foundation, irrespective of diagnosis, the stage of the disease is based on the level of kidney function: Stage Description GFR(mL/min/1.73 m(2)) 1 Kidney damage with normal or decreased GFR 90 2 Kidney damage with mild decrease in GFR 60-89 3 Moderate decrease in GFR 30-59 4 Severe decrease in GFR 15-29 5 Kidney failure <15 (or dialysis) 2 Class 0 (Negative <0.35) 3 Class 0 (Negative <0.35) 4 Class 0 (Negative <0.35) 5 Class 0 (Negative <0.35) 6 Class 0 (Negative <0.10) 7 Class 0 (Negative <0.35) 8 Class 0 (Negative <0.35) Test Performed by: [facility] [place] [address] 9 Class 0 (Negative <0.35) Test Performed by: [facility] [place] [address] 10 Class 0 (Negative <0.35) Test Performed by: [facility] [address] [place] [address] 11 Class 0 (Negative <0.35) Test Performed by: [facility] [employer] [address] [place] [address] 12 Class 0 (Negative <0.35) Test Performed by: [facility] [place] [address] 13 Class 0 (Negative <0.35) Test Performed by: [facility] [place] [address] 14 Class 0 (Negative <0.35) Test Performed by: [facility] [place] [address] 15 Class 0 (Negative <0.35) Test Performed by: [facility] [address] [place] [address] [place] [address] 16 Class 0 (Negative <0.35) Test Performed by: [facility] [address] [place] [address] 17 Class 0 (Negative <0.35) Test Performed by: [facility] [email or web address] [address] 18 Class 0 (Negative <0.35) Test Performed by: [facility] [employer] [address] [place] [address] 19 Class 0 (Negative <0.35) Test Performed by: [facility] [employer] [address] [place] [address] 20 Class 0 (Negative <0.35) Test Performed by: [place] [address] 21 Class 0 (Negative <0.35) 22 Class 0 (Negative <0.35) 23 Class 0 (Negative <0.35) 24 Class 0 (Negative <0.35) 25 Class 0 (Negative <0.35) 26 Class 0 (Negative <0.35) 27 Class 0 (Negative <0.35) 28 Class 0 (Negative <0.35) 29 Class 0 (Negative <0.35) 30 Class 0 (Negative <0.35) 31 Class 0 (Negative <0.35) 32 Class 0 (Negative <0.35) 33 Class 0 (Negative <0.35) 34 Class 0 (Negative <0.35) 35 Class 0 (Negative <0.35) 36 Class 0 (Negative <0.35) 37 Class 0 (Negative <0.35) 38 Class 0 (Negative <0.35) 39 Class 0 (Negative <0.35) 40 Class 0 (Negative <0.35) Test Performed by: [place] [address] 41 Class 0 (Negative <0.35) 42 Class 0 (Negative <0.35) 43 Class 0 (Negative <0.35) 44 Class 0 (Negative <0.35) 45 Class 0 (Negative <0.35) 46 Class 0 (Negative <0.35) Test Performed by: [place] [address] 47 Class 0 (Negative <0.35) Test Performed by: [facility] [employer] [address] [place] [address] 48 Class 0 (Negative <0.35) Test Performed by: [place] [address] 49 Class 0 (Negative <0.35) Test Performed by: [facility] [employer] [address] [place] [address] 50 Class 0 (Negative <0.35) Test Performed by: [place] [address] 51 Class 0 (Negative <0.35) Test Performed by: [place] [address] 52 Class 0 (Negative <0.35) Test Performed by: [place] [address] 53 Class 0 (Negative <0.35) Test Performed by: [place] [address] 54 Class 0 (Negative <0.35) Test Performed by: [place] [address] 55 Class 0 (Negative <0.35) 56 Class 0 (Negative <0.35) 57 Class 0 (Negative <0.35) 58 Class 0 (Negative <0.35) 59 Class 0 (Negative <0.35) 60 Class 0 (Negative <0.35) 61 Class 0 (Negative <0.35) 62 Class 0 (Negative <0.35) 63 Class 0 (Negative <0.35) 64 Class 0 (Negative <0.35) 65 Class 0 (Negative <0.35) 66 Class 0 (Negative <0.35) 67 Class 0 (Negative <0.35) Test Performed by: [place] [address] 68 Class 0 (Negative <0.35) 69 Class 0 (Negative <0.35) 70 Class 0 (Negative <0.35) 71 Class 0 (Negative <0.35) 72 Class 0 (Negative <0.35) 73 Class 0 (Negative <0.35) ADDITIONAL INFORMATION This test was developed using an analyte specific reagent. Its performance characteristics were determined by [facility] in a manner consistent with CLIA requirements. This test has not been cleared or approved by the U.S. Food and Drug Administration. 74 Test Performed by: [address] [address] Collections And Archives Director: Thanh Solo II, M.D., Ph.D. 75 REFERENCE VALUE 25-HYDROXY D TOTAL (D2+D3) Optimum levels in the healthy population are 20-50, patients with bone disease may benefit from higher levels within this range. Test Performed by: [place] [address] Collections And Archives Director: Thanh Solo II, M.D., Ph.D. 76 Serologic response to B. burgdorferi infection is not detected, but cannot rule out early infection during which low or undetectable antibody levels to B. burgdorferi may be present. If clinically indicated, a new serum specimen should be submitted in 7-14 days. Test Performed by: [place] [address] Collections And Archives Director: Jeremy Fry III, M.D. 77 PLEASE NOTE NEW REFERENCE RANGES. 78 Test Performed by: [facility] Dpt of Lab Med and Pathology [address] [place] [address] Collections And Archives Director: Jeremy Fry III, M.D. 79 Anion gap measurement may be of limited value in the presence of any alkalosis, especially in a combined acid base disorder. . 80 Note change in reference range as of 07/16/08. The change was based on recommendations from the [place] [employer]. 81 Please note change in reference range effective 08 . 82 A metabolite of Naproxen, O-desmethylnaproxen, has been shown to interfere with the Jendrassik-Robeline method for measuring total bilirubin. Samples from patients who have taken Naproxen have shown spurious elevation in total bilirubin levels. 83 -- REFERENCE VALUE -- Mean +1 SD +2 SD 20.0 78.0 304.0 Test Performed by: [facility] Dpt of Lab Med and Pathology [address] [place] [address] Collections And Archives Director: Jeremy Fry III, M.D. 84 TEST RESULT RETURNED FROM REFERENCE LABORATORY AND HARDCOPY SENT TO PHYSICIAN(S) OFFICE. Procedures Date Code Description Status 10/16/2018 24737 Wart Treatment 1-14 warts Global Period 10 Days Completed 06/18/2018 60407 Wart Treatment 1-14 warts Global Period 10 Days Completed 06/05/2018 87245 Wart Treatment 1-14 warts Global Period 10 Days Completed 10/19/2014 25107 Wart Treatment 1-14 warts Global Period 10 Days Completed 01/06/2014 66751 Wart Treatment 1-14 warts Global Period 10 Days Completed 11/07/2013 42810 Wart Treatment 1-14 warts Global Period 10 Days Completed 08/06/2013 65556 Wart Treatment 1-14 warts Global Period 10 Days Completed 07/16/2013 26791 Wart Treatment 1-14 warts Global Period 10 Days Completed 04/08/2013 01143 Wart Treatment 1-14 warts Global Period 10 Days Completed 10/11/2011 86337 Wart Treatment 1-14 warts Global Period 10 Days Completed 09/22/2009 90110 Wart Treatment W/Pe Completed Encounters Type Date Location Provider Dx Diagnosis Office Visit 04/03/2019 [facility] Ramón Lara, J06.9 Acute upper 2:15p C.P.N.P respiratory infection, unspecified Office Visit 01/28/2019 [facility] Ramón Lara, B35.4 Tinea corporis 8:45a C.P.N.P B07.9 Viral wart, unspecified Office Visit 10/16/2018 11:15a [facility] Henrietta Rose, N20.2 Calculus of kidney D.O. with calculus of ureter B07.9 Viral wart, unspecified Office Visit 07/01/2018 4:00p [facility] Henrietta Rose, N20.2 Calculus of kidney D.O. with calculus of ureter Office Visit 06/28/2018 4:00p [facility] Ravindra Chew R39.15 Urgency of III, M.D. urination Office Visit 05/01/2018 2:45p Main Office Henrietta Rose Z00.00 Encntr for general D.O. adult medical exam w/o abnormal findings F41.1 Generalized anxiety disorder Office Visit 03/20/2018 9:45a [facility] Henrietta Rose, R14.0 Abdominal D.O. distension (gaseous) Office Visit 06/21/2017 10:00a Main Office Azul Manzo00.129 Encntr for routine D.O. child health exam w/o abnormal findings F41.1 Generalized anxiety disorder F33.1 Major depressive disorder, recurrent, moderate B07.9 Viral wart, unspecified Office Visit 02/12/2017 10:00a [facility] Ramón Lara, J10.1 Flu due to oth C.P.N.P ident influenza virus w oth resp manifest J01.00 Acute maxillary sinusitis, unspecified Office Visit 06/21/2016 2:45p Main Office Henrietta Rose, Z00.129 Encntr for D.O. 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 disorder F33.1 Major depressive disorder, recurrent, moderate F50.9 Eating disorder, unspecified Office Visit 02/28/2016 10:30a [facility] Henrietta Rose, J01.00 Acute maxillary D.O. sinusitis, unspecified F41.1 Generalized anxiety disorder F50.9 Eating disorder, unspecified Office Visit 01/10/2016 5:00p [facility] Darwin Hines J01.20 Acute ethmoidal M.D. sinusitis, unspecified Office Visit 12/22/2015 11:45a [facility] Henrietta Rose D.O. J01.00 Acute maxillary sinusitis, unspecified Office Visit 10/08/2015 4:00p [facility] Henrietta Rose D.O. F41.1 Generalized anxiety disorder F33.1 Major depressive disorder, recurrent, moderate F50.9 Eating disorder, unspecified Office Visit 06/25/2015 3:00p [facility] Henrietta Rose V20.2 Routine Or D.O. Child Health Check 296.32 Depressive Disorder Major Recurrent Moderate 300.02 Anxiety Disorder Generalized Office Visit 05/20/2015 9:30a [facility] Office Henrietta Rose 296.32 Depressive Disorder D.O. Major Recurrent Moderate 300.02 Anxiety Disorder Generalized Office Visit 04/06/2015 9:00a [facility] Henrietta Rose, 296.32 Depressive Disorder D.O. Major Recurrent Moderate 300.02 Anxiety Disorder Generalized Office Visit 02/25/2015 9:00a [facility] Henrietta Milton, 296.32 Depressive Disorder D.O. Major Recurrent Moderate 078.10 Viral Warts Unspec Office Visit 12/23/2014 1:30p [facility] Ramón Lara, 465.9 URI Upper C.P.N.P Respiratory Infections Acute Unspec Sites Office Visit 10/19/2014 4:30p [facility] Ramón Marco, 465.9 URI Upper C.P.N.P Respiratory Infections Acute Unspec Sites 078.10 Viral Warts Unspec Office Visit 05/21/2014 9:30a [facility] Ramón Marco, 611.72 Lump Or Mass C.P.N.P Breast Office Visit 05/06/2014 4:15p [facility] Ramón Marco, 682.9 Cellulitis & C.P.N.P Abscess Unspec Site 078.10 Viral Warts Unspec Office Visit 01/06/2014 8:45a [facility] Henrietta Rose, 314.01 Attention Deficit D.O. Disorder W/ Hyperactivity 078.10 Viral Warts Unspec Office Visit 11/24/2013 4:15p [facility] Ramón Marco, 465.9 URI Upper C.P.N.P Respiratory Infections Acute Unspec Sites 382.9 Otitis Media Unspec 110.5 Dermatophytosis Body 719.46 Pain Joint Lower Leg Office Visit 11/07/2013 8:30a [facility] Ramón Lara, 078.10 Viral Warts C.P.N.P Unspec 314.01 Attention Deficit Disorder W/ Hyperactivity Office Visit 08/06/2013 11:45a Main Office Henrietta Rose, 382.01 Otitis Media Acute D.O. Suppurative W/ Spontaneous Rupture Drum 078.10 Viral Warts Unspec Office Visit 07/16/2013 11:45a [facility] Henrietta Rose, 382.01 Otitis Media Acute D.O. Suppurative W/ Spontaneous Rupture Drum 078.10 Viral Warts Unspec V04.81 Need For Prophylactic Vaccination & Inoculation/Influenza Office Visit 07/01/2013 10:15a [facility] Henrietta Rose, V20.2 Routine Infant Or D.O. Child Health Check 314.01 Attention Deficit Disorder W/ Hyperactivity 078.10 Viral Warts Unspec 382.01 Otitis Media Acute Suppurative W/ Spontaneous Rupture Drum Office Visit 06/20/2013 12:45p [facility] Molly Mitchell, 465.9 URI Upper C.P.N.P. Respiratory Infections Acute Unspec Sites Office Visit 04/08/2013 8:45a [facility] Henrietta Rose, 314.01 Attention Deficit D.O. Disorder W/ Hyperactivity 078.10 Viral Warts Unspec Office Visit 09/09/2012 10:00a [facility] Henrietta Rose, V20.2 Routine Or D.O. Child Health Check 314.01 Attention Deficit Disorder W/ Hyperactivity Office Visit 05/14/2012 8:00a [facility] Henrietta Rose, 314.01 Attention Deficit D.O. Disorder W/ Hyperactivity 078.10 Viral Warts Unspec Office Visit 10/30/2011 10:00a [facility] Henrietta Rose, V20.2 Routine Or D.O. Child Health Check 314.01 Attention Deficit Disorder W/ Hyperactivity 301.4 Obsessive Compulsive Disorder 300.00 Anxiety State Unspec Office Visit 10/11/2011 8:15a [facility] Henrietta Rose, 314.01 Attention Deficit D.O. Disorder W/ Hyperactivity 301.4 Obsessive Compulsive Disorder 078.10 Viral Warts Unspec Office Visit 05/30/2011 12:00p [facility] Office Ramón Lara, 465.9 URI Upper C.P.N.P Respiratory Infections Acute Unspec Sites 380.22 Otitis Externa Other Acute Office Visit 04/04/2011 9:00a [facility] Henrietta Rose, 314.01 Attention Deficit D.O. Disorder W/ Hyperactivity 301.4 Obsessive Compulsive Disorder Office Visit 12/26/2010 10:00a [facility] Ramón Lara, 696.3 Pityriasis Rosea C.P.N.P 078.10 Viral Warts Unspec Office Visit 10/06/2010 2:30p [facility] Randy Mello, 784.1 Throat Pain M.D. Office Visit 08/26/2010 3:00p [facility] Henrietta Rose, V20.2 Routine Or D.O. Child Health Check 314.01 Attention Deficit Disorder W/ Hyperactivity Office Visit 03/17/2010 4:30p [facility] Henrietta Rose, 465.9 URI Upper D.O. Respiratory Infections Acute Unspec Sites Office Visit 03/02/2010 8:00a [facility] Office Henrietta Rose, 300.00 Anxiety State D.O. Unspec 314.01 Attention Deficit Disorder W/ Hyperactivity 461.9 Sinusitis Acute Unspec Office Visit 01/13/2010 12:00p [facility] Office Henrietta Rose, 300.00 Anxiety State D.O. Unspec 314.01 Attention Deficit Disorder W/ Hyperactivity Office Visit 09/22/2009 3:15p [facility] Henrietta Rose, V20.2 Routine Or D.O. Child Health Check 078.10 Viral Warts Unspec Office Visit 12/25/2008 8:30a [facility] Office Henrietta Rose, 782.1 Rash & Other D.O. Nonspec Skin Eruption V21.1 Puberty Office Visit 09/22/2008 5:45p [facility] Office Henrietta Rose, V20.2 Routine Infant Or D.O. Child Health Check 314.01 Attention Deficit Disorder W/ Hyperactivity 477.9 Rhinitis Allergic Cause Unspec 374.9 Eyelid Disorder Unspec Office Visit 04/29/2008 8:00a [facility] Henrietta Rose, 314.01 Attention Deficit D.O. Disorder W/ Hyperactivity Office Visit 04/13/2008 12:00p [facility] Darwin 382.00 Otitis Media Donny, Suppurative Acute M.D. Office Visit 02/14/2008 8:00a [facility] Office Henrietta Rose, 314.01 Attention Deficit D.O. Disorder W/ Hyperactivity Office Visit 01/15/2008 8:30a [facility] Office Henrietta Rose, 314.01 Attention Deficit D.O. Disorder W/ Hyperactivity 780.50 Sleep Disturbance Unspec 034.0 Streptococcal Sore Throat Plan of Treatment 04/03/2019 - Naomie NavarroP.N.PJ06.9 Acute upper respiratory infection, unspecifiedComments:Encourage fluids, humidify air, use nasal saline as needed for congestion. Tylenol or ibuprofen maybe used for fever or discomfort. Please call if symptoms persist or worsen.Follow up:As needed Goals 04/03/2019 - Naomie NavarroP.N.PJ06.9 Acute upper respiratory infection, unspecifiedAdequate fluid intake to prevent dehydration Resolution of symptoms
--- NOTE | 2019-04-05 13:27 | UC ---
Throat Pain/Nasal Anil HPI - HPI Summary HPI Summary: 18 y/o female presents to the urgent care c/o sinus congestion and yellowish discharge for the past week. Pt reports symptoms started w/ the common cold and then she developed sore throat w/ an aphthous ulcer. She saw her PCP 2 days ago and strep was negative. She was Dx w/ URI. Yesterday symptoms worsen w/ RT ear pain, decrease hearing and pressure. Pain is 4/10 today. She has taken Tylenol/Ibuprofen PO to alleviate symptoms. Cough is dry. Pt denies fever, SOB, chest pain, abdominal pain, N/V/D, dizziness, or rash. Pt is UTD w/ all vaccines for her age. - History of Current Complaint Stated Complaint: SINUS COMPLAINT Time Seen by Provider: 04/05/19 13:26 Hx Obtained From: Patient Hx Last Menstrual Period: 03/13/2019 ?: No Onset/Duration: Gradual Onset, Lasting Weeks - 1 week, Still Present, Worse Since - yesterday w/ left ear pain Severity: Moderate Pain Intensity: 4 Pain Scale Used: 0-10 Numeric Cough: Nonproductive Associated Signs & Symptoms: Positive: Dysphagia - mild, Sinus Discomfort, Nasal Discharge - yellowish. Negative: Fever - Allergies/Home Medications Allergies/Adverse Reactions: Allergies Allergy/AdvReac Type Severity Reaction Status Date / Time gluten Allergy GI Upset Verified 04/05/19 13:24 Milk Containing Products Allergy GI Upset Verified 04/05/19 13:24 PMH/Surg Hx/FS Hx/Imm Hx Previously Healthy: Yes - Pt denies PMHX - Surgical History Surgical History: Yes Surgery Procedure, Year, and Place: TOSILLECTOMY - Family History Known Family History: Positive: Hypertension - Social History Occupation: Student Lives: With Family Alcohol Use: None Substance Use Type: None Smoking Status (MU): Never Smoked Tobacco - Immunization History Most Recent Tetanus Shot: 2009 Vaccination Up to Date: Yes Review of Systems All Other Systems Reviewed And Are Negative: Yes Constitutional: Positive: Negative Skin: Positive: Negative Eyes: Positive: Negative ENT: Positive: Ear Ache - left ear pain, Nasal Discharge - yellowish, Sinus Congestion Respiratory: Positive: Negative Cardiovascular: Positive: Negative Gastrointestinal: Positive: Negative Genitourinary: Positive: Negative Motor: Positive: Negative Neurovascular: Positive: Negative Musculoskeletal: Positive: Negative Neurological: Positive: Negative Psychological: Positive: Negative Is Patient Immunocompromised?: No Physical Exam - Summary Physical Exam Summary: Vital signs: reviewed General: well developed, well nourished female adolescent sitting in the examining table w/o any apparent distress Skin: Tony, warm and dry, no evidence of atopic dermatitis, psoriasis, seborrhea. HEENT: -Head: atraumatic, non tender; no scalp dermatitis. -Eyes: sclera and conjunctiva clear, PERRLA, EOMI -Ears: no pre- or postauricular lymphadenopathy or erythema; LF external ear canal clear and LF TM injected w/ erythema and yellowish drainage, RT external ear canal clear and RT TM WNL. No perforation. -Nose/Face: erythematous and edematous nasal mucosa with clear rhinorrhea, no frontal or maxillary sinus tender to palpation. -Mouth/Throat: Mucous membrane moist, posterior pharynx clear, no erythema or exudates. Neck: supple, FROM, nontender, no lymphadenopathy, no meningismus. Chest: Clear to auscultation, normal breath sounds Abd: soft, Bowel sounds active, Nontender. Back: no spinal or CVAT Neuro: A&O x4, GCS 15, no focal neuro deficits, normal behavior for age. Triage Information Reviewed: Yes Throat Pain/Nasal Course/Dx - Course Course Of Treatment: 18 y/o female presents to the urgent care c/o sinus congestion and yellowish discharge for the past week. Pt reports symptoms started w/ the common cold and then she developed sore throat w/ an aphthous ulcer. She saw her PCP 2 days ago and strep was negative. She was Dx w/ URI. Yesterday symptoms worsen w/ RT ear pain, decrease hearing and pressure. Pain is 4/10 today. She has taken Tylenol/Ibuprofen PO to alleviate symptoms. Cough is dry. Pt denies fever, SOB, chest pain, abdominal pain, N/V/D, dizziness, or rash. Pt is UTD w/ all vaccines for her age. Hx obtained. Pt w/ left otitis media on examination. Pt Rx Amoxicillin PO. Advised to take ibuprofen PO to alleviate otalgia. If symptoms do not improve or worsen to return to the urgent care or f/u with PCP for further management. D/C instructions explained. PT understood and agreed with D/C - Differential Dx/Diagnosis Differential Diagnosis/HQI/PQRI: Influenza, Laryngitis, Otitis Media, Pharyngitis, Sinusitis, URI Provider Diagnosis: Left otitis media Discharge - Sign-Out/Discharge Documenting (check all that apply): Patient Departure - D/C home All imaging exams completed and their final reports reviewed: No Studies - Discharge Plan Condition: Stable Disposition: HOME Prescriptions: Amoxicillin PO (*) [Amoxicillin 875 MG (*)] 875 mg PO BID #14 tab Patient Education Materials: Ear Infection (ED) Referrals: Henrietta Rose DO [Primary Care Provider] - 3 Days Additional Instructions: 1-Please take the full course of the antibiotic to avoid resistance. 2-Please take ibuprofen PO q6-8hrs prn as instructed after meals to alleviate pain and swelling. Increase fluid intake, eat well, rest and avoid strenuous exercise 3-If symptoms do not improve or worsen please return to the urgent care or f/u with your PCP in 3 days for further evaluation and treatment. - Billing Disposition and Condition Condition: STABLE Disposition: Home
[2019-04-05 13:29] VITALS: BP 107/53
== END 2019-04-05 13:59 | disposition home or self-care (01) ==
LOC: UCCORT 12:47
DX: H66.92 Otitis media, unspecified, left ear (principal)
CPT/HCPCS: 99212; G0463